=== PATIENT | female | born 1985 | race Caucasian/White ===

== ENCOUNTER 2018-02-14 07:53 | Emergency (ER) | payer MEDICAID, OTHER ==
[2018-02-14 08:00] VITALS: BP 145/87
--- NOTE | 2018-02-14 08:38 | ER Document Report ---
ED Neck/Back Problem - General Mode of Arrival: Ambulatory Information source: Patient TRAVEL OUTSIDE OF THE [place] IN LAST 30 DAYS: No - General Chief Complaint: Back Pain Stated Complaint: BACK/LEG PAIN Time Seen by Provider: 02/14/18 08:16 Notes: 32-year-old female who presents to the emergency department today with complaints of lower back pain. Patient states the pain seems to originate in her back but is more in the back of her left leg down to the lateral ankle that has the most pain. Patient describes her pain as a "shocking" pain with occasional numbness and tingling without bladder/bowel incontinence or saddle anesthesia. Patient states she has been having symptoms like this since approximately August. Patient states her PCP did x-rays and prescribed her gabapentin which did not help with her pain. On November 10 patient was prescribed prednisone and Flexeril from this emergency department. Patient states the Flexeril did nothing for her but the 5 days she was on the prednisone she got significant relief of her symptoms. Patient is standing up in the room for comfort. Patient states standing or lying supine with her knees up are the x2 positions that relieve her pain. (REYES PATEL) - Related Data Allergies/Adverse Reactions: No Known Allergies Allergy (Verified 02/14/18 07:55) Past Medical History - General Information source: Patient - Social History Smoking Status: Current Every Day Smoker Cigarette use (# per day): Yes Chew tobacco use (# tins/day): No Frequency of alcohol use: Occasional Drug Abuse: None Lives with: Family Family History: Reviewed & Not Pertinent Patient has suicidal ideation: No Patient has homicidal ideation: No Surgical Hx: Negative Review of Systems - Review of Systems Constitutional: No symptoms reported EENT: No symptoms reported Cardiovascular: No symptoms reported Respiratory: No symptoms reported Gastrointestinal: No symptoms reported Genitourinary: No symptoms reported Female Genitourinary: No symptoms reported Musculoskeletal: See HPI, Back pain Skin: No symptoms reported Hematologic/Lymphatic: No symptoms reported Neurological/Psychological: See HPI, Other - numbness/tingling/pain down left leg -: Yes All other systems reviewed and negative Physical Exam - Vital signs Vitals: Temp Pulse Resp BP Pulse Ox 97.4 F 86 16 145/87 H 98 02/14/18 07:55 02/14/18 07:55 02/14/18 07:55 02/14/18 07:55 09/22/18 07:55 - Notes Notes: Physical Exam: General: Alert, appears well. Standing in room for pain relief. HEENT: Normocephalic. Atraumatic. PERRL. Extraocular movements intact. Oropharynx clear. Neck: Supple. Non-tender. Respiratory: No respiratory distress. Clear and equal breath sounds bilaterally. Cardiovascular: Regular rate and rhythm. Abdominal: Obese. Non-tender. No distension. Normal Bowel Sounds. Back: No deformity or step-off. Left SI joint tenderness with palpation. Extremities: Moves all four extremities. Upper extremities: Normal inspection. Normal ROM. Lower extremities: Normal inspection. No edema. Normal ROM. Neurological: Normal cognition. AAOx4. Normal speech. Psychological: Normal affect. Normal Mood. Skin: Warm. Dry. Normal color. (REYES PATEL) - Vital Signs Vital signs: Temp Pulse Resp BP Pulse Ox 97.4 F 86 16 145/87 H 98 02/14/18 07:55 02/14/18 07:55 02/14/18 07:55 02/14/18 07:55 02/14/18 07:55 Discharge - Discharge Clinical Impression: Herniated intervertebral disc of lumbar spine, Lumbosacral radiculopathy at S1 Condition: Stable Disposition: HOME, SELF-CARE Additional Instructions: Herniated Disc You have a herniated disc. A vertebral disc is a tissue "cushion" between the bones of the spine. When it herniates, a portion bulges out. If it pushes on a nerve, it can cause radiation of pain, numbness, weakness, or tingling in the area served by the affected nerve. Most herniated discs do NOT need surgery. In fact about one-quarter of normal, symptom-free people have at least one herniated disc. Symptoms will usually go away after a few weeks. Rest on a firm surface. Avoid lying on your stomach. If on your back, put a pillow under the knees. If on your side, bend your legs and put a pillow between the knees. Temporarily avoid bending, lifting, and other activity that increases pain. Depending on the severity of symptoms, we may prescribe antiinflammatory medicine such as ibuprofen, corticosteroids, muscle relaxers, or narcotic pain medication. Gentle heat may be used intermittently along the spine. Spinal manipulation or adjustment is usually not recommended for disk herniation. Exercises to strengthen your back and abdominal muscles are prescribed as your symptoms improve. Your doctor will advise you on the proper care at each stage in your recovery. You may be better in a few days -- or healing may take several weeks. Return or call the doctor if you develop severe unrelieved pain, increasing weakness or numbness, or loss of bowel or bladder control. Take the medication as prescribed, start tomorrow. You had today's dose here in the emergency room. Take the CD of your study and the printed radiology report to follow-up with your primary care provider this week for review. RETURN TO THE EMERGENCY ROOM IF ANY NEW OR WORSENING SYMPTOMS. Prescriptions: Prednisone [Deltasone 10 mg Tablet] 10 mg PO ASDIR PRN #21 tablet PRN Reason: Referrals: JUANJO RATLIFF MD [Primary Care Provider] - Follow up as needed Scribe Attestation: 02/14/18 10:15 I personally performed the services described in the documentation, reviewed and edited the documentation which was dictated to the scribe in my presence, and it accurately records my words and actions. (MARK GANN) Scribe Documentation - Scribe Written by Kasia:: Kasia Costello, 02/14/2018 [id number] acting as scribe for :: Luba
--- NOTE | 2018-02-14 10:32 | RADIOLOGY REPORT (SQ) ---
EXAM DESCRIPTION: MRI LUMBAR SPINE WITHOUT COMPLETED DATE/TIME: 02/14/2018 10:14 am REASON FOR STUDY: Left S1 radiculopathy, improved with prednisone COMPARISON: None. TECHNIQUE: Sagittal and Axial imaging includes T1, T2, STIR and gradient echo sequences. Coronal T2/ HASTE imaging. LIMITATIONS: None. FINDINGS: VISUALIZED UPPER ABDOMEN: Limited evaluation. No acute or suspicious findings suggested. SEGMENTATION: No transitional anatomy. The lowest well-developed disc space is labeled L5-S1. ALIGNMENT: Anatomic. VERTEBRAE: Intact. BONE MARROW: Normal. No marrow replacement or reactive changes. Benign hemangioma in the T12 vertebr al body DISC SIGNAL: Decreased T2 weighted intervertebral disc signal at L4-5 without disc space loss of heig ht. POSTERIOR ELEMENTS: Generally intact. No pars defect evident. HARDWARE: None in the spine. CORD AND CONUS: Normal in size and signal intensity. Conus at the T12 level. SOFT TISSUES: No aortic aneurysm seen. No bulky retroperitoneal adenopathy or mass. No paraspinal mas s or fluid. T11-12: Unremarkable T12-L1: Unremarkable L1-L2: Unremarkable aside from mild bilateral facet hypertrophy L2-L3: Unremarkable aside from mild bilateral facet hypertrophy L3-L4: Unremarkable aside from mild bilateral facet hypertrophy L4-L5: Moderate size central and left paracentral disc herniation with inferior migration of the extr uded fragment, flattening the thecal sac in the left lateral recess at the takeoff of the left proxim al L5 nerve root from the thecal sac. Extruded inferiorly migrated disc material also flattens the t hecal sac at the proximal S1 nerve root takeoff. These changes are best shown on sagittal images 10 and 11, and axial T2 images 20-24. Elsewhere at L4-5, mild bilateral inferior foraminal narrowing is present without exiting L4 nerve ro ot impingement L5-S1: Extruded material from the L4-5 inferiorly migrated disc flattens the thecal sac at the takeof f of the proximal left S1 nerve root best shown on axial image 24. Very mild bilateral facet hypertr ophy at L5-S1 without L5-S1 central or foraminal encroachment. SACRUM: Visualized upper sacrum intact. OTHER: No other significant findings. IMPRESSION: Left paracentral L4-5 disc herniation with extruded herniated disc material flattening t he thecal sac at the takeoff of the proximal left L5 and proximal S1 nerve roots as above TECHNICAL DOCUMENTATION: JOB ID: [id number] [employer]- All Rights Reserved Reading location - IP/workstation name: [email or web address]
[2018-02-14] MEDS ORDERED: PREDNISONE 20 MG TABLET PO ONE (10:56)
== END 2018-02-14 11:11 | disposition home or self-care (01) ==
LOC: ER 07:53
DX: M51.16 Intervertebral disc disorders with radiculopathy, lumbar region (principal); F17.210 Nicotine dependence, cigarettes, uncomplicated
CPT/HCPCS: 99284; 72148; J7512